=== PATIENT | female | born 1950 | race Two or more races ===

== ENCOUNTER 2018-09-08 08:32 | Day surgery (SDC) | payer MEDICARE, OTHER ==
[2018-09-08] MEDS ORDERED: PROPOFOL 200 MG/20 ML BOTTLE IV ONE (08:33)
[2018-09-08] MEDS ORDERED: IV LACTATED RINGERS SOLUTION 1,000 ML BAG IV ONE (08:33)
== END 2018-09-08 13:00 | disposition home or self-care (01) ==
LOC: DS 08:32
PROVIDERS: ATTEND Surgery
DX: K63.5 Polyp of colon (principal); K25.9 Gastric ulcer, unspecified as acute or chronic, without hemorrhage or perforation; K44.9 Diaphragmatic hernia without obstruction or gangrene; K21.0 Gastro-esophageal reflux disease with esophagitis; K64.8 Other hemorrhoids; K56.2 Volvulus; Z87.891 Personal history of nicotine dependence; Z83.3 Family history of diabetes mellitus; Z82.49 Family history of ischemic heart disease and other diseases of the circulatory system; Z79.899 Other long term (current) drug therapy; Z98.890 Other specified postprocedural states
CPT/HCPCS: 43239; 45380; 88305; 88312; 88342; J7120 ×2; A4217; A4663; J3490